=== PATIENT | female | born 1995 | race Caucasian/White ===

== ENCOUNTER 2017-11-11 02:16 | Emergency (ER) | payer MEDICAID ==
[~2017-11-11 02:16] MED LIST: BACDS PO; DOXY-8 PO; HYDR-2514 PO; HYDR-569 PO; NAPR-56 PO; ZOL50T PO
== END 2017-11-11 03:19 | disposition left against medical advice (07) ==
LOC: ER 02:18
DX: Z00.8 Encounter for other general examination (principal); Z53.21 Procedure and treatment not carried out due to patient leaving prior to being seen by health care provider
CPT/HCPCS: A6449

== ENCOUNTER 2017-11-11 05:25 | Emergency (ER) | payer MEDICAID ==
[~2017-11-11] VITALS: Ht 162.6 cm; Wt 55.5 kg
[2017-11-11 05:43] VITALS: BP 107/62
[2017-11-11] MEDS ORDERED: BUPIVAcaine/PF 2.5 mg/ml (0.25%) 30ml vial IJ ONE (06:30)
[2017-11-11] MEDS ORDERED: TETanus/Pertussis (Acell)/Diphther VAC/PF (Tdap-Adult) 0.5ml syringe IM ONE (06:30)
== END 2017-11-11 07:50 ==
LOC: ER 05:25
DX: Z02.89 Encounter for other administrative examinations (principal); S01.81XA Laceration without foreign body of other part of head, initial encounter; K04.1 Necrosis of pulp; F15.10 Other stimulant abuse, uncomplicated; F12.10 Cannabis abuse, uncomplicated; Z88.6 Allergy status to analgesic agent; V19.9XXA Pedal cyclist (driver) (passenger) injured in unspecified traffic accident, initial encounter; Y93.55 Activity, bike riding; Y92.413 State road as the place of occurrence of the external cause; Y99.9 Unspecified external cause status
CPT/HCPCS: 12011; 90471; 90715; 99283; A6449; J3490; J7030

== ENCOUNTER 2017-12-21 18:25 | Emergency (ER) | payer MEDICAID ==
[~2017-12-21] VITALS: Ht 162.6 cm; Wt 63.5 kg
[~2017-12-21 18:25] MED LIST changes: -NAPR-56 PO
[2017-12-21 18:53] VITALS: BP 132/83
== END 2017-12-21 18:54 | disposition home or self-care (01) ==
LOC: ER 18:27
DX: S01.81XD Laceration without foreign body of other part of head, subsequent encounter (principal); J45.909 Unspecified asthma, uncomplicated; Z88.8 Allergy status to other drugs, medicaments and biological substances; Z79.899 Other long term (current) drug therapy; W21.11 Struck by baseball bat
CPT/HCPCS: 99281

== ENCOUNTER 2018-04-30 03:35 | Emergency (ER) | payer MEDICAID ==
[~2018-04-30] VITALS: Ht 162.6 cm; Wt 62.0 kg
[2018-04-30 03:44] VITALS: BP 123/70
[2018-04-30] MEDS ORDERED: AMOX500C2 PO (04:11)
[2018-04-30] MEDS ORDERED: HYDR-569 PO (04:11)
== END 2018-04-30 05:02 | disposition home or self-care (01) ==
LOC: ER 03:36
DX: K04.7 Periapical abscess without sinus (principal); F17.200 Nicotine dependence, unspecified, uncomplicated; J45.909 Unspecified asthma, uncomplicated; Z79.899 Other long term (current) drug therapy; Z88.6 Allergy status to analgesic agent
CPT/HCPCS: 99283

== ENCOUNTER 2018-12-18 01:48 | Emergency (ER) | payer MEDICAID ==
[~2018-12-18] VITALS: Ht 162.6 cm; Wt 65.0 kg
[~2018-12-18 01:48] MED LIST changes: +HYDR-4383 PO; -HYDR-569 PO
[2018-12-18 03:33] LABS: URINE HCG NEGATIVE (NEG)
[2018-12-18 03:41] LABS: CLARITY,URINE CLEAR (Clear); COLOR,URINE YELLOW (Yellow); GLUCOSE, URINE NEGATIVE (Neg); KETONES,URINE NEGATIVE (Neg); LEUKOCYTE ESTERASE ,URINE TRACE (Neg); NITRITES, URINE NEGATIVE (Neg); OCCULT BLOOD,URINE MODERATE (Neg); PROTEIN,URINE NEGATIVE (Neg); UROBILINOGEN,URINE 0.2 E.U/dL (0.2-1.0)
[2018-12-18 03:42] LABS: UA COLLECTION TYPE CLN CATCH MIDSTREAM
[2018-12-18 03:52] LABS: MUCUS STRANDS MODERATE /LPF (Neg); SQUAMOUS EPITHELIAL CELL,UR MANY /LPF (FEW)
[2018-12-18 03:53] LABS: BACTERIA,URINE 1+ /HPF (Neg); TRICHOMONAS,URINE MOD /HPF (NEGATIVE)
[2018-12-18 03:54] LABS: RBC,URINE 0-2 /HPF (0-2)
[2018-12-18 04:40] VITALS: BP 109/66
== END 2018-12-18 08:53 | disposition left against medical advice (07) ==
LOC: ER 01:49
DX: N93.9 Abnormal uterine and vaginal bleeding, unspecified (principal); Z53.21 Procedure and treatment not carried out due to patient leaving prior to being seen by health care provider
CPT/HCPCS: 81001; 81025

== ENCOUNTER 2019-01-09 23:41 | Emergency (ER) | payer MEDICAID | END 2019-01-10 00:47 | disposition left against medical advice (07) | LOC: ER 23:42 | DX: K04.7 Periapical abscess without sinus (principal); Z53.21 Procedure and treatment not carried out due to patient leaving prior to being seen by health care provider ==

== ENCOUNTER 2019-05-26 18:11 | Emergency (ER) | payer MEDICAID ==
[~2019-05-26] VITALS: Ht 162.6 cm; Wt 59.0 kg
[2019-05-26 18:18] VITALS: BP 121/75
== END 2019-05-26 20:49 | disposition home or self-care (01) ==
LOC: ER 18:12
DX: S90.32XA Contusion of left foot, initial encounter (principal); J45.909 Unspecified asthma, uncomplicated; F32.9 Major depressive disorder, single episode, unspecified; Z88.6 Allergy status to analgesic agent; Z79.899 Other long term (current) drug therapy; X50.9XXA Other and unspecified overexertion or strenuous movements or postures, initial encounter; Y93.51 Activity, roller skating (inline) and skateboarding; Y92.89 Other specified places as the place of occurrence of the external cause; Y99.8 Other external cause status
CPT/HCPCS: 73630; 99283

== ENCOUNTER 2019-05-28 19:08 | Emergency (ER) | payer MEDICAID ==
[~2019-05-28] VITALS: Ht 162.6 cm; Wt 59.0 kg
[~2019-05-28 19:08] MED LIST changes: +SERT-153 PO; -ZOL50T PO
[2019-05-28 19:18] VITALS: BP 125/76
[2019-05-28 19:46] LABS: URINE HCG NEGATIVE (NEG)
[2019-05-28 19:50] LABS: CLARITY,URINE CLOUDY (Clear); COLOR,URINE YELLOW (Yellow); GLUCOSE, URINE NEGATIVE (Neg); KETONES,URINE 15 mg/dl (Neg); LEUKOCYTE ESTERASE ,URINE SMALL (Neg); NITRITES, URINE POSITIVE (Neg); OCCULT BLOOD,URINE LARGE (Neg); PROTEIN,URINE 100 mg/dl (Neg); UA COLLECTION TYPE CLN CATCH MIDSTREAM
[2019-05-28 20:03] LABS: BACTERIA,URINE 1+ /HPF (Neg); MUCUS STRANDS MODERATE /LPF (Neg); RBC,URINE NONE SEEN /HPF (0-2); SQUAMOUS EPITHELIAL CELL,UR MODERATE /LPF (FEW); WBC,URINE TNTC /HPF (0-4)
[2019-05-28 20:04] LABS: URIC ACID CRYSTALS 2+ /HPF (NEGATIVE)
[2019-05-28 21:49] LABS: BASOPHILS # (AUTO) 0.1 X10'3 (0-0.2); EOSINOPHILS # (AUTO) 0.1 X10'3 (0-0.9); EOSINOPHILS % (AUTO) 0.7 % (0-6); HEMATOCRIT 33.3 % (35.0-45.0); HEMOGLOBIN 11.1 g/dl (12.0-16.0); LYMPHOCYTES # (AUTO) 2.1 X10'3 (1.1-4.8); LYMPHOCYTES % (AUTO) 24.7 % (21-51); MEAN CORPUSCULAR HEMOGLOBIN 31.2 PG (27.0-31.0); MEAN CORPUSCULAR HGB CONC 33.4 g/dL (33.0-36.5); MEAN CORPUSCULAR VOLUME 93.3 FL (78-98); MEAN PLATELET VOLUME 7.3 FL (7.4-10.4); MONOCYTES # (AUTO) 0.5 X10'3 (0-0.9); MONOCYTES % (AUTO) 5.8 % (2-12); NEUTROPHILS # (AUTO) 5.8 X10'3 (1.8-7.7); NEUTROPHILS % (AUTO) 67.8 % (42-75); PLATELET COUNT 281 X10'3 (140-440); RED BLOOD COUNT 3.57 X10'6 (4.20-5.60); RED CELL DISTRIBUTION WIDTH 16.6 % (11.5-14.5); WHITE BLOOD COUNT 8.5 X10'3 (4.5-11.0)
[2019-05-28 22:03] LABS: ANION GAP 9 (8-16); BLOOD UREA NITROGEN 15 MG/DL (7-18); CHLORIDE 107 MMOL/L (99-107); CREATININE 0.77 MG/DL (0.40-0.90); GLUCOSE 84 MG/DL (70-104); POTASSIUM 3.4 MMOL/L (3.5-5.1); SODIUM 143 MMOL/L (135-145); TOTAL CARBON DIOXIDE 26.6 MMOL/L (24-32)
[2019-05-28 22:04] LABS: ALANINE AMINOTRANSFERASE 28 U/L (12-78); ALBUMIN 3.3 G/DL (3.4-5.0); ALBUMIN/GLOBULIN RATIO 0.8 (1.1-1.5); ALKALINE PHOSPHATASE 108 IU/L (46-116); ASPARTATE AMINO TRANSFERASE 26 U/L (10-37); BILIRUBIN,TOTAL 0.2 MG/DL (0.1-1.0); BUN/CREATININE RATIO 19.5 (6.6-38.0); CALCIUM 8.6 MG/DL (8.5-10.1); TOTAL PROTEIN 7.3 G/DL (6.4-8.2); eGFR > 90 ML/MIN
[2019-05-28] MEDS ORDERED: azithromycin 250mg tablet PO ONE (22:15)
[2019-05-28] MEDS ORDERED: CefTRIAXone 1000mg IM Kit (w/lidocaine diluent) IM ONE (22:15)
[2019-05-28] MEDS ORDERED: CEPH-572 PO (22:20)
== END 2019-05-28 23:16 | disposition home or self-care (01) ==
LOC: ER 19:08
DX: N92.1 Excessive and frequent menstruation with irregular cycle (principal); J45.909 Unspecified asthma, uncomplicated; F32.9 Major depressive disorder, single episode, unspecified; F15.90 Other stimulant use, unspecified, uncomplicated; F11.90 Opioid use, unspecified, uncomplicated; F10.99 Alcohol use, unspecified with unspecified alcohol-induced disorder; Z88.6 Allergy status to analgesic agent; Z79.899 Other long term (current) drug therapy; Y90.9 Presence of alcohol in blood, level not specified
CPT/HCPCS: 36415; 80053; 81001; 81025; 85025; 87077; 87088; 87186; 87210; 87491; 87591; 96372; 99283; J0696

== ENCOUNTER 2019-07-05 20:31 | Emergency (ER) | payer MEDICAID ==
[~2019-07-05] VITALS: Ht 162.6 cm; Wt 56.8 kg
[2019-07-05] MEDS ORDERED: clindamycin 150mg capsule PO ONE (21:45)
[2019-07-05] MEDS ORDERED: bacitracin 15gm ointment TP ONE (21:45)
[2019-07-05] MEDS ORDERED: CLIN150C8 PO (21:46)
[2019-07-05 22:11] VITALS: BP 115/81
== END 2019-07-05 22:04 | disposition home or self-care (01) ==
LOC: ER 20:32
DX: L02.01 Cutaneous abscess of face (principal); J45.909 Unspecified asthma, uncomplicated; F32.9 Major depressive disorder, single episode, unspecified; F15.90 Other stimulant use, unspecified, uncomplicated; F11.90 Opioid use, unspecified, uncomplicated; Z88.6 Allergy status to analgesic agent; Z79.899 Other long term (current) drug therapy
CPT/HCPCS: 99283

== ENCOUNTER 2019-07-16 23:26 | Emergency (ER) | payer MEDICAID ==
[~2019-07-16] VITALS: Ht 162.6 cm; Wt 58.0 kg
[~2019-07-16 23:26] MED LIST changes: +CLIN150C8 PO
[2019-07-16 23:33] VITALS: BP 135/89
--- NOTE | 2019-07-17 00:07 | NUR ---
PT STATES SHE DRINKS A HALF GALLON OF ALCOHOL PER DAY
[2019-07-17] MEDS ORDERED: LIDOcaine 1% w/EPI 1:200,000 injection 10mL vial IM ONE (00:25)
[2019-07-17] MEDS ORDERED: LIDOcaine 1% W/epiNEPHrine 1:100,000 20ml vial SQ ONE (00:30)
== END 2019-07-17 01:10 | disposition home or self-care (01) ==
LOC: ER 23:26
DX: S00.451A Superficial foreign body of right ear, initial encounter (principal); J45.909 Unspecified asthma, uncomplicated; F32.9 Major depressive disorder, single episode, unspecified; F15.90 Other stimulant use, unspecified, uncomplicated; F11.90 Opioid use, unspecified, uncomplicated; F10.99 Alcohol use, unspecified with unspecified alcohol-induced disorder; Z88.6 Allergy status to analgesic agent; Z79.899 Other long term (current) drug therapy; W49.09XA Other specified item causing external constriction, initial encounter; Y93.89 Activity, other specified; Y92.89 Other specified places as the place of occurrence of the external cause; Y99.8 Other external cause status; Y90.9 Presence of alcohol in blood, level not specified
CPT/HCPCS: 10120; 69200; 99284

== ENCOUNTER 2019-07-29 13:32 | Emergency (ER) | payer MEDICAID ==
[~2019-07-29] VITALS: Ht 162.6 cm; Wt 56.4 kg
[2019-07-29 13:40] VITALS: BP 131/90
[2019-07-29] MEDS ORDERED: ERYT1OIN6 RIGHTEYE (16:02)
== END 2019-07-29 16:22 | disposition home or self-care (01) ==
LOC: ER 13:32
DX: H00.012 Hordeolum externum right lower eyelid (principal); J45.909 Unspecified asthma, uncomplicated; F32.9 Major depressive disorder, single episode, unspecified; F14.90 Cocaine use, unspecified, uncomplicated; F15.90 Other stimulant use, unspecified, uncomplicated; Z88.6 Allergy status to analgesic agent
CPT/HCPCS: 99283

== ENCOUNTER 2019-08-27 23:49 | Emergency (ER) | payer MEDICAID ==
[~2019-08-27] VITALS: Ht 162.6 cm; Wt 56.8 kg
[~2019-08-27 23:49] MED LIST changes: +ERYT1OIN6 RIGHTEYE
[2019-08-27 23:52] VITALS: BP 101/74
[2019-08-28] MEDS ORDERED: ONDA4TAB12 PO (00:51)
[2019-08-28] MEDS ORDERED: GABA-532 PO (00:51)
[2019-08-28] MEDS ORDERED: NICO-731 TOP (00:59)
--- NOTE | 2019-08-28 01:15 | NUR ---
RN OF SECTION UNABLE TO PERFORM NURSING CHARTING BEFORE WAS DC'D BY . NO NURSING INTERVENTIONS WERE REQUIRED.
== END 2019-08-28 01:02 | disposition home or self-care (01) ==
LOC: ER 23:49
DX: Z02.89 Encounter for other administrative examinations (principal); J45.909 Unspecified asthma, uncomplicated; F32.9 Major depressive disorder, single episode, unspecified; F17.210 Nicotine dependence, cigarettes, uncomplicated; F15.90 Other stimulant use, unspecified, uncomplicated; F11.90 Opioid use, unspecified, uncomplicated; Z88.6 Allergy status to analgesic agent; Z79.899 Other long term (current) drug therapy
CPT/HCPCS: 99283

== ENCOUNTER 2019-10-21 23:41 | Emergency (ER) | payer MEDICAID ==
[~2019-10-21] VITALS: Ht 162.6 cm; Wt 56.8 kg
[~2019-10-21 23:41] MED LIST changes: -ERYT1OIN6 RIGHTEYE; +GABA-532 PO; +NICO-731 TOP; +ONDA4TAB12 PO
[2019-10-22] MEDS ORDERED: GABA-532 PO (00:05)
[2019-10-22] MEDS ORDERED: gabapentin 400mg capsule PO STA (00:07)
[2019-10-22 00:32] VITALS: BP 148/87
== END 2019-10-22 00:32 | disposition home or self-care (01) ==
LOC: ER 23:41
DX: F10.20 Alcohol dependence, uncomplicated (principal); F15.90 Other stimulant use, unspecified, uncomplicated; F11.90 Opioid use, unspecified, uncomplicated; J45.909 Unspecified asthma, uncomplicated; Z88.6 Allergy status to analgesic agent; Z79.899 Other long term (current) drug therapy; Y90.9 Presence of alcohol in blood, level not specified
CPT/HCPCS: 99283

== ENCOUNTER 2020-01-25 05:48 | Emergency (ER) | payer MEDICAID ==
[~2020-01-25] VITALS: Ht 162.6 cm; Wt 60.5 kg
[2020-01-25 05:51] VITALS: BP 128/88
[2020-01-25] MEDS ORDERED: sulfamethoxazole/trimethoprim DS (800/160mg) tablet PO ONE (06:55)
[2020-01-25] MEDS ORDERED: SULF1TAB49 PO (06:56)
[2020-01-25] MEDS ORDERED: HYDR28.472 TOP (06:56)
== END 2020-01-25 07:06 | disposition home or self-care (01) ==
LOC: ER 05:48
DX: S70.361A Insect bite (nonvenomous), right thigh, initial encounter (principal); L03.115 Cellulitis of right lower limb; F41.9 Anxiety disorder, unspecified; F32.9 Major depressive disorder, single episode, unspecified; F17.200 Nicotine dependence, unspecified, uncomplicated; F15.90 Other stimulant use, unspecified, uncomplicated; F11.90 Opioid use, unspecified, uncomplicated; F10.10 Alcohol abuse, uncomplicated; Z88.8 Allergy status to other drugs, medicaments and biological substances; Z79.899 Other long term (current) drug therapy; W57.XXXA Bitten or stung by nonvenomous insect and other nonvenomous arthropods, initial encounter; Y93.89 Activity, other specified; Y92.89 Other specified places as the place of occurrence of the external cause; Y99.8 Other external cause status
CPT/HCPCS: 99283

== ENCOUNTER 2020-04-26 18:12 | Emergency (ER) | payer MEDICAID ==
[~2020-04-26] VITALS: Ht 162.6 cm; Wt 60.0 kg
[~2020-04-26 18:12] MED LIST changes: +HYDR28.472 TOP
[2020-04-26 18:25] VITALS: BP 148/80
[2020-04-26] MEDS ORDERED: ERYT1OIN6 RIGHTEYE (19:11)
== END 2020-04-26 19:23 | disposition home or self-care (01) ==
LOC: ER 18:12
DX: H10.9 Unspecified conjunctivitis (principal); J45.909 Unspecified asthma, uncomplicated; F32.9 Major depressive disorder, single episode, unspecified; F10.10 Alcohol abuse, uncomplicated; F15.90 Other stimulant use, unspecified, uncomplicated; F11.90 Opioid use, unspecified, uncomplicated; Z79.899 Other long term (current) drug therapy; Z88.6 Allergy status to analgesic agent; Z88.1 Allergy status to other antibiotic agents; Z88.5 Allergy status to narcotic agent
CPT/HCPCS: 99283

== ENCOUNTER 2020-05-17 19:01 | Emergency (ER) | payer MEDICAID ==
[~2020-05-17] VITALS: Ht 162.6 cm; Wt 60.0 kg
[~2020-05-17 19:01] MED LIST changes: +ERYT1OIN6 RIGHTEYE
[2020-05-17 19:03] VITALS: BP 101/70
[2020-05-17] MEDS ORDERED: PENI250T2 PO (19:08)
[2020-05-17] MEDS ORDERED: LORA-269 PO (19:08)
[2020-05-17] MEDS ORDERED: GABA300C PO (19:08)
== END 2020-05-17 19:11 | disposition home or self-care (01) ==
LOC: ER 19:01
DX: F10.10 Alcohol abuse, uncomplicated (principal); F15.10 Other stimulant abuse, uncomplicated; K08.89 Other specified disorders of teeth and supporting structures; J45.909 Unspecified asthma, uncomplicated; F32.9 Major depressive disorder, single episode, unspecified; F11.90 Opioid use, unspecified, uncomplicated; Z88.6 Allergy status to analgesic agent; Z79.2 Long term (current) use of antibiotics; Z79.899 Other long term (current) drug therapy; Y90.9 Presence of alcohol in blood, level not specified
CPT/HCPCS: 99283

== ENCOUNTER 2020-10-06 18:11 | Emergency (ER) | payer MEDICAID ==
[~2020-10-06] VITALS: Ht 162.6 cm; Wt 59.6 kg
[~2020-10-06 18:11] MED LIST changes: -ERYT1OIN6 RIGHTEYE; +GABA300C PO; +LORA-269 PO
[2020-10-06 18:28] VITALS: BP 138/89
[2020-10-06] MEDS ORDERED: mupirocin 2% ointment 22GM TP STA (18:48)
[2020-10-06] MEDS ORDERED: SULF1TAB49 PO (18:54)
== END 2020-10-06 19:26 | disposition home or self-care (01) ==
LOC: ER 18:11
DX: S80.261A Insect bite (nonvenomous), right knee, initial encounter (principal); J45.909 Unspecified asthma, uncomplicated; F32.9 Major depressive disorder, single episode, unspecified; F15.90 Other stimulant use, unspecified, uncomplicated; F11.90 Opioid use, unspecified, uncomplicated; Z72.89 Other problems related to lifestyle; Z88.6 Allergy status to analgesic agent; Z79.2 Long term (current) use of antibiotics; Z79.899 Other long term (current) drug therapy; W57.XXXA Bitten or stung by nonvenomous insect and other nonvenomous arthropods, initial encounter; Y93.89 Activity, other specified; Y92.89 Other specified places as the place of occurrence of the external cause; Y99.8 Other external cause status
CPT/HCPCS: 99283

== ENCOUNTER 2020-11-25 04:36 | Emergency (ER) | payer MEDICAID ==
[~2020-11-25] VITALS: Ht 162.6 cm; Wt 59.1 kg
--- NOTE | 2020-11-25 04:48 | NUR ---
etogh DAILY LAST DRIN K JUST BEFORE SHE ARRIVED. CW PAIN REPRODUCED WITH PRESSURE AND LETS UP WHEN PRESSURE RELEASED.
--- NOTE | 2020-11-25 04:49 | NUR ---
DR COLIN IN ROOM REASSURED PATIENT THIS IS UNLIKELY A HEART ATTACK. PATEINT REPORTS MOTHER RECENTLY AND UNABLE TO HET INTO REHAB MAKING HER ANXIOUS. PLAN TO TREAT PAIN ORDERS PENDING FROM DR COLIN
[2020-11-25] MEDS ORDERED: acetaminophen 325mg tablet PO ONE (04:50)
[2020-11-25 04:57] VITALS: BP 134/88
== END 2020-11-25 04:58 | disposition home or self-care (01) ==
LOC: ER 04:37
DX: R07.89 Other chest pain (principal); R20.0 Anesthesia of skin; J45.909 Unspecified asthma, uncomplicated; F32.9 Major depressive disorder, single episode, unspecified; F17.200 Nicotine dependence, unspecified, uncomplicated; F15.90 Other stimulant use, unspecified, uncomplicated; F11.90 Opioid use, unspecified, uncomplicated; Z72.89 Other problems related to lifestyle; Z88.6 Allergy status to analgesic agent; Z79.2 Long term (current) use of antibiotics; Z79.899 Other long term (current) drug therapy
CPT/HCPCS: 93005; 99283

== ENCOUNTER 2020-12-19 23:06 | Emergency (ER) | payer MEDICAID ==
[~2020-12-19] VITALS: Ht 162.6 cm; Wt 59.6 kg
[2020-12-19 23:14] VITALS: BP 117/84
== END 2020-12-19 23:40 | disposition home or self-care (01) ==
LOC: ER 23:06
DX: J02.9 Acute pharyngitis, unspecified (principal); R09.89 Other specified symptoms and signs involving the circulatory and respiratory systems; R51.9 Headache, unspecified; J45.909 Unspecified asthma, uncomplicated; F32.9 Major depressive disorder, single episode, unspecified; F15.90 Other stimulant use, unspecified, uncomplicated; F11.90 Opioid use, unspecified, uncomplicated; Z72.89 Other problems related to lifestyle; Z88.6 Allergy status to analgesic agent; Z79.2 Long term (current) use of antibiotics; Z79.899 Other long term (current) drug therapy
CPT/HCPCS: 99281

== ENCOUNTER 2021-01-07 21:13 | Emergency (ER) | payer MEDICAID ==
[~2021-01-07] VITALS: Ht 162.6 cm; Wt 57.7 kg
[2021-01-07] MEDS ORDERED: POLOS EACHEYE (23:31)
== END 2021-01-07 23:42 | disposition home or self-care (01) ==
LOC: ER 21:14
DX: H00.015 Hordeolum externum left lower eyelid (principal); J45.909 Unspecified asthma, uncomplicated; F32.9 Major depressive disorder, single episode, unspecified; F15.90 Other stimulant use, unspecified, uncomplicated; F11.90 Opioid use, unspecified, uncomplicated; Z88.6 Allergy status to analgesic agent; Z88.1 Allergy status to other antibiotic agents; Z79.899 Other long term (current) drug therapy
CPT/HCPCS: 99283

== ENCOUNTER 2021-01-27 19:12 | Emergency (ER) | payer MEDICAID ==
[~2021-01-27] VITALS: Ht 162.6 cm; Wt 63.6 kg
[2021-01-27] MEDS ORDERED: ondansetron 4mg rapidly disintigrating tab PO ONE (19:50)
[2021-01-27 19:57] LABS: BASOPHILS % (AUTO) 0.5 % (0-1); EOSINOPHILS # (AUTO) 0.1 X10'3 (0-0.9); EOSINOPHILS % (AUTO) 1.9 % (0-6); HEMATOCRIT 39.8 % (35.0-45.0); HEMOGLOBIN 13.2 g/dl (12.0-16.0); LYMPHOCYTES # (AUTO) 2.4 X10'3 (1.1-4.8); LYMPHOCYTES % (AUTO) 35.1 % (21-51); MEAN CORPUSCULAR HEMOGLOBIN 32.6 PG (27.0-31.0); MEAN CORPUSCULAR HGB CONC 33.1 g/dL (33.0-36.5); MEAN CORPUSCULAR VOLUME 98.7 FL (78-98); MONOCYTES # (AUTO) 0.6 X10'3 (0-0.9); NEUTROPHILS # (AUTO) 3.8 X10'3 (1.8-7.7); NEUTROPHILS % (AUTO) 54.5 % (42-75); PLATELET COUNT 346 X10'3 (140-440); RED BLOOD COUNT 4.03 X10'6 (4.20-5.60); RED CELL DISTRIBUTION WIDTH 13.3 % (11.5-14.5); WHITE BLOOD COUNT 6.9 X10'3 (4.5-11.0)
[2021-01-27] MEDS ORDERED: LORazepam 2 mg/ml vial IV ONE (20:10)
[2021-01-27] MEDS ORDERED: normal saline 1000ml 1,000 ML IV ONE (20:10)
[2021-01-27 20:11] LABS: ALANINE AMINOTRANSFERASE 24 U/L (12-78); ALBUMIN 3.2 G/DL (3.4-5.0); ALBUMIN/GLOBULIN RATIO 0.9 (1.1-1.5); ALKALINE PHOSPHATASE 103 IU/L (46-116); ANION GAP 9 (8-16); ASPARTATE AMINO TRANSFERASE 28 U/L (10-37); BILIRUBIN,TOTAL 0.5 MG/DL (0.1-1.0); BLOOD UREA NITROGEN 15 MG/DL (7-18); CALCIUM 8.3 MG/DL (8.5-10.1); CHLORIDE 107 MMOL/L (99-107); CREATININE 0.75 MG/DL (0.40-0.90); GLUCOSE 96 MG/DL (70-104); LIPASE 78 U/L (73-393); POTASSIUM 3.7 MMOL/L (3.5-5.1); SODIUM 143 MMOL/L (135-145); TOTAL CARBON DIOXIDE 27.3 MMOL/L (24-32); TOTAL PROTEIN 6.8 G/DL (6.4-8.2); eGFR > 90 ML/MIN
[2021-01-27] MEDS ORDERED: pantoprazole 40 MG vial IV ONE (20:20)
[2021-01-27] MEDS ORDERED: ONDA4TAB6 PO (20:47)
[2021-01-27] MEDS ORDERED: PANT20TA18 PO (20:47)
--- NOTE | 2021-01-27 21:07 | NUR ---
PT UP TO THE BATHROOM. PT IS UNABLE TO URINATE AT THIST TIME.
[2021-01-27 21:26] VITALS: BP 120/74
[2021-01-28] MEDS ORDERED: pantoprazole 40mg Tablet.DR PO SCH (07:30)
== END 2021-01-27 21:28 | disposition home or self-care (01) ==
LOC: ER 19:13
DX: K29.20 Alcoholic gastritis without bleeding (principal); F10.10 Alcohol abuse, uncomplicated; J45.909 Unspecified asthma, uncomplicated; F32.9 Major depressive disorder, single episode, unspecified; F15.90 Other stimulant use, unspecified, uncomplicated; F11.90 Opioid use, unspecified, uncomplicated; Z88.6 Allergy status to analgesic agent; Z79.899 Other long term (current) drug therapy; Y90.0 Blood alcohol level of less than 20 mg/100 ml
CPT/HCPCS: 36415; 80053; 83690; 85025; 96361; 96374; 96375; 99284; C9113; J2060; J7030

== ENCOUNTER 2021-02-04 14:19 | Emergency (ER) | payer MEDICAID ==
[~2021-02-04] VITALS: Ht 162.6 cm; Wt 62.3 kg
[~2021-02-04 14:19] MED LIST changes: +ONDA4TAB6 PO; +PANT20TA18 PO
[2021-02-04 15:57] VITALS: BP 140/89
== END 2021-02-04 16:00 | disposition home or self-care (01) ==
LOC: ER 14:20
DX: M79.671 Pain in right foot (principal); R22.41 Localized swelling, mass and lump, right lower limb; J45.909 Unspecified asthma, uncomplicated; F15.90 Other stimulant use, unspecified, uncomplicated; F11.90 Opioid use, unspecified, uncomplicated; Z88.8 Allergy status to other drugs, medicaments and biological substances; Z79.2 Long term (current) use of antibiotics; Z79.899 Other long term (current) drug therapy
CPT/HCPCS: 73630; 99283

== ENCOUNTER 2021-03-06 19:08 | Emergency (ER) | payer MEDICAID ==
[~2021-03-06] VITALS: Ht 162.6 cm; Wt 59.1 kg
[2021-03-06 19:13] VITALS: BP 120/79
--- NOTE | 2021-03-06 20:31 | NUR ---
Called for pt in [facility] on 3 separate occasions with no answer. Chart given to charge nurse for further action.
== END 2021-03-06 20:36 | disposition left against medical advice (07) ==
LOC: ER 19:09
DX: Z53.21 Procedure and treatment not carried out due to patient leaving prior to being seen by health care provider (principal)

== ENCOUNTER 2021-06-08 09:21 | Emergency (ER) | payer MEDICAID ==
[~2021-06-08] VITALS: Ht 162.6 cm; Wt 59.6 kg
[2021-06-08 09:35] VITALS: BP 123/88
== END 2021-06-08 10:06 | disposition home or self-care (01) ==
LOC: ER 09:21
DX: F15.10 Other stimulant abuse, uncomplicated (principal); J45.909 Unspecified asthma, uncomplicated; F32.9 Major depressive disorder, single episode, unspecified; F11.90 Opioid use, unspecified, uncomplicated; Z72.89 Other problems related to lifestyle; Z88.6 Allergy status to analgesic agent; Z88.1 Allergy status to other antibiotic agents; Z79.899 Other long term (current) drug therapy; Z79.2 Long term (current) use of antibiotics
CPT/HCPCS: 99281

== ENCOUNTER 2021-07-07 23:58 | Emergency (ER) | payer MEDICAID ==
[~2021-07-07] VITALS: Ht 162.6 cm; Wt 130.0 kg
[2021-07-08 00:28] VITALS: BP 118/80
== END 2021-07-08 | disposition left against medical advice (07) ==
LOC: ER 07-08 06:12
DX: L08.9 Local infection of the skin and subcutaneous tissue, unspecified (principal); Z53.21 Procedure and treatment not carried out due to patient leaving prior to being seen by health care provider

== ENCOUNTER 2021-08-05 15:21 | Emergency (ER) | payer MEDICAID ==
[~2021-08-05] VITALS: Ht 162.6 cm; Wt 59.1 kg
[2021-08-05 15:38] VITALS: BP 117/78
[2021-08-05] MEDS ORDERED: ondansetron 4mg rapidly disintigrating tab PO ONE (16:05)
[2021-08-05] MEDS ORDERED: acetaminophen 325mg tablet PO ONE (16:05)
[2021-08-05 16:36] LABS: D-DIMER < 0.19 MG/L FEU (0-0.50)
[2021-08-05] MEDS ORDERED: ONDA4TAB6 PO (16:58)
[2021-08-05] MEDS ORDERED: AZIT-63 PO (16:58)
== END 2021-08-05 17:05 | disposition home or self-care (01) ==
LOC: ER 15:22
DX: J06.9 Acute upper respiratory infection, unspecified (principal); Z20.822 Contact with and (suspected) exposure to COVID-19; F15.10 Other stimulant abuse, uncomplicated; F11.10 Opioid abuse, uncomplicated; Z88.6 Allergy status to analgesic agent; Z88.1 Allergy status to other antibiotic agents; Z79.899 Other long term (current) drug therapy
CPT/HCPCS: 36415; 85379; 87635; 99283; C9803

== ENCOUNTER 2021-09-10 21:06 | Emergency (ER) | payer MEDICAID ==
[~2021-09-10] VITALS: Ht 162.6 cm; Wt 63.6 kg
[2021-09-10 21:24] VITALS: BP 125/86
[2021-09-10] MEDS ORDERED: ALBU8HFA PO (22:14)
== END 2021-09-10 22:24 | disposition home or self-care (01) ==
LOC: ER 21:07
DX: O98.512 Other viral diseases complicating pregnancy, second trimester (principal); U07.1 COVID-19; J45.909 Unspecified asthma, uncomplicated; F32.9 Major depressive disorder, single episode, unspecified; F15.10 Other stimulant abuse, uncomplicated; F11.10 Opioid abuse, uncomplicated; Z88.6 Allergy status to analgesic agent; Z79.899 Other long term (current) drug therapy; Z3A.13 13 weeks gestation of pregnancy
CPT/HCPCS: 87635; 99283; C9803

== ENCOUNTER 2021-09-17 18:02 | Emergency (ER) | payer MEDICAID ==
[~2021-09-17] VITALS: Ht 162.6 cm; Wt 63.6 kg
[~2021-09-17 18:02] MED LIST changes: +ALBU8HFA PO
[2021-09-17 18:29] VITALS: BP 118/71
[2021-09-17] MEDS ORDERED: CLIN-97 PO (18:56)
[2021-09-17 19:32] LABS: EOSINOPHILS # (AUTO) 0.1 X10'3 (0-0.9)
[2021-09-17 19:34] LABS: BASOPHILS % (AUTO) 0.4 % (0-1); EOSINOPHILS % (AUTO) 0.9 % (0-6); HEMATOCRIT 37.5 % (35.0-45.0); LYMPHOCYTES % (AUTO) 24.5 % (21-51); MEAN CORPUSCULAR HEMOGLOBIN 33.8 PG (27.0-31.0); MEAN CORPUSCULAR HGB CONC 34.8 g/dL (33.0-36.5); MEAN CORPUSCULAR VOLUME 97.3 FL (78-98); MEAN PLATELET VOLUME 7.7 FL (7.4-10.4); MONOCYTES # (AUTO) 0.6 X10'3 (0-0.9); MONOCYTES % (AUTO) 7.4 % (2-12); NEUTROPHILS # (AUTO) 5.4 X10'3 (1.8-7.7); NEUTROPHILS % (AUTO) 66.8 % (42-75); PLATELET COUNT 309 X10'3 (140-440); RED BLOOD COUNT 3.86 X10'6 (4.20-5.60); RED CELL DISTRIBUTION WIDTH 13.1 % (11.5-14.5); WHITE BLOOD COUNT 8.2 X10'3 (4.5-11.0)
[2021-09-17 19:40] LABS: ALANINE AMINOTRANSFERASE 29 U/L (12-78); ALBUMIN 3.8 G/DL (3.4-5.0); ALKALINE PHOSPHATASE 91 IU/L (46-116); ANION GAP 11 (8-16); ASPARTATE AMINO TRANSFERASE 17 U/L (10-37); BILIRUBIN,TOTAL 0.3 MG/DL (0.1-1.0); BLOOD UREA NITROGEN 15 MG/DL (7-18); BUN/CREATININE RATIO 21.1 (6.6-38.0); CALCIUM 8.9 MG/DL (8.5-10.1); CHLORIDE 106 MMOL/L (99-107); CREATININE 0.71 MG/DL (0.40-0.90); GLUCOSE 117 MG/DL (70-104); POTASSIUM 3.6 MMOL/L (3.5-5.1); SODIUM 143 MMOL/L (135-145); TOTAL CARBON DIOXIDE 26.5 MMOL/L (24-32); TOTAL PROTEIN 7.7 G/DL (6.4-8.2); eGFR > 90 ML/MIN
== END 2021-09-17 20:02 | disposition home or self-care (01) ==
LOC: ER 18:03
DX: O98.511 Other viral diseases complicating pregnancy, first trimester (principal); O26.891 Other specified pregnancy related conditions, first trimester; L03.113 Cellulitis of right upper limb; J45.909 Unspecified asthma, uncomplicated; F32.9 Major depressive disorder, single episode, unspecified; F15.10 Other stimulant abuse, uncomplicated; Z88.6 Allergy status to analgesic agent; Z79.899 Other long term (current) drug therapy; Z3A.13 13 weeks gestation of pregnancy
CPT/HCPCS: 36415; 80053; 83605; 84145; 85025; 87040; 99283

== ENCOUNTER 2022-02-06 08:01 | Emergency (ER) | payer MEDICAID ==
[~2022-02-06] VITALS: Ht 162.6 cm; Wt 73.2 kg
[~2022-02-06 08:01] MED LIST changes: -ALBU8HFA PO; +CLIN-97 PO
[2022-02-06] MEDS ORDERED: PENI250T2 PO (09:25)
[2022-02-06 09:32] VITALS: BP 102/62
== END 2022-02-06 09:34 | disposition home or self-care (01) ==
LOC: ER 08:02
DX: O99.612 Diseases of the digestive system complicating pregnancy, second trimester (principal); K04.7 Periapical abscess without sinus; O99.512 Diseases of the respiratory system complicating pregnancy, second trimester; J45.909 Unspecified asthma, uncomplicated; Z3A.27 27 weeks gestation of pregnancy; Z72.89 Other problems related to lifestyle; Z88.8 Allergy status to other drugs, medicaments and biological substances; Z79.2 Long term (current) use of antibiotics; Z79.899 Other long term (current) drug therapy
CPT/HCPCS: 99283

== ENCOUNTER 2022-04-08 17:52 | Emergency (ER) | payer MEDICAID ==
[~2022-04-08] VITALS: Ht 162.6 cm; Wt 77.3 kg
[2022-04-08 17:55] VITALS: BP 103/57
[2022-04-08] MEDS ORDERED: AMOX-100 PO (18:10)
== END 2022-04-08 18:21 | disposition home or self-care (01) ==
LOC: ER 17:53
DX: K02.9 Dental caries, unspecified (principal); J45.909 Unspecified asthma, uncomplicated; F32.A Depression, unspecified; Z88.6 Allergy status to analgesic agent; Z79.899 Other long term (current) drug therapy
CPT/HCPCS: 99283

== ENCOUNTER 2022-07-23 15:05 | Emergency (ER) | payer MEDICAID | END 2022-07-23 16:16 | disposition left against medical advice (07) | LOC: ER 15:06 | DX: Z00.8 Encounter for other general examination (principal); Z53.21 Procedure and treatment not carried out due to patient leaving prior to being seen by health care provider ==

== ENCOUNTER 2023-08-11 07:50 | Emergency (ER) | payer MEDICAID ==
[~2023-08-11] VITALS: Ht 162.6 cm; Wt 61.4 kg
[~2023-08-11 07:50] MED LIST changes: +CLIN-214 PO; -CLIN150C8 PO
[2023-08-11 08:06] VITALS: TEMP 97.9
[2023-08-11] MEDS ORDERED: normal saline 1000ML IV soln IVB ONE (08:10)
[2023-08-11 08:15] LABS: BASOPHILS # (AUTO) 0.1 X10'3 (0-0.2); BASOPHILS % (AUTO) 1.4 % (0-1); EOSINOPHILS # (AUTO) 0.2 X10'3 (0-0.9); EOSINOPHILS % (AUTO) 2.4 % (0-6); HEMATOCRIT 36.9 % (35.0-45.0); HEMOGLOBIN 12.5 g/dl (12.0-16.0); LYMPHOCYTES # (AUTO) 3.1 X10'3 (1.1-4.8); LYMPHOCYTES % (AUTO) 48.5 % (21-51); MEAN CORPUSCULAR HGB CONC 33.9 g/dL (33.0-36.5); MEAN CORPUSCULAR VOLUME 94.6 FL (78-98); MEAN PLATELET VOLUME 7.2 FL (7.4-10.4); MONOCYTES # (AUTO) 0.4 X10'3 (0-0.9); MONOCYTES % (AUTO) 6.8 % (2-12); NEUTROPHILS # (AUTO) 2.7 X10'3 (1.8-7.7); NEUTROPHILS % (AUTO) 40.9 % (42-75); PLATELET COUNT 273 X10'3 (140-440); RED CELL DISTRIBUTION WIDTH 12.8 % (11.5-14.5); WHITE BLOOD COUNT 6.5 X10'3 (4.5-11.0)
[2023-08-11 08:36] LABS: ALANINE AMINOTRANSFERASE 17 U/L (12-78); ALBUMIN 3.5 G/DL (3.4-5.0); ALBUMIN/GLOBULIN RATIO 1.2 (1.1-1.5); ALKALINE PHOSPHATASE 55 IU/L (46-116); ANION GAP 10 (8-16); ASPARTATE AMINO TRANSFERASE 17 U/L (10-37); BILIRUBIN,TOTAL 0.3 MG/DL (0.1-1.0); BLOOD UREA NITROGEN 13 MG/DL (7-18); BUN/CREATININE RATIO 17.3 (10.0-20.0); CALCIUM 8.3 MG/DL (8.5-10.1); CHLORIDE 108 MMOL/L (99-107); CREATININE 0.75 MG/DL (0.40-0.90); GLUCOSE 122 MG/DL (70-104); POTASSIUM 3.3 MMOL/L (3.5-5.1); SODIUM 140 MMOL/L (135-145); TOTAL CARBON DIOXIDE 22.3 MMOL/L (24-32); TOTAL PROTEIN 6.5 G/DL (6.4-8.2); eCRCL 96 ML/MIN; eGFR > 90 ML/MIN
[2023-08-11 08:44] LABS: PRO BRAIN NATRIURETIC PEPTIDE 99 PG/ML (0-125)
[2023-08-11] MEDS ORDERED: acetaminophen 325mg tablet PO ONE (09:10)
[2023-08-11] MEDS ORDERED: potassium Cl 20 mEq SR tablet PO STA (10:16)
[2023-08-11 10:46] LABS: URINE HCG NEGATIVE (NEG)
[2023-08-11 11:02] LABS: CLARITY,URINE CLOUDY (Clear); COLOR,URINE RED (Yellow); UA COLLECTION TYPE CLN CATCH MIDSTREAM
[2023-08-11 11:03] LABS: BACTERIA,URINE FEW /HPF (Neg); RBC,URINE TNTC /HPF (0-2); SQUAMOUS EPITHELIAL CELL,UR FEW /LPF (FEW)
[2023-08-11 11:04] LABS: TRANSITIONAL EPI CELLS,URINE FEW /HPF
[2023-08-11 11:49] VITALS: BP 110/66; PULSE 75; RESP 16; O2SAT 99
--- NOTE | 2023-08-11 11:51 | NUR ---
NO INTERACTION WITH PT OTHER THAN TO TAKE PT CHART OFF THE BOARD. MICHAEL DIETZ WAS THE NURSE,
== END 2023-08-11 12:05 | disposition home or self-care (01) ==
LOC: ER 07:50
DX: E87.6 Hypokalemia (principal); R55 Syncope and collapse; J45.909 Unspecified asthma, uncomplicated; F32.A Depression, unspecified; Z88.6 Allergy status to analgesic agent; Z79.899 Other long term (current) drug therapy
CPT/HCPCS: 36415; 80053; 81001; 81025; 82948; 83880; 84484; 85025; 87088; 93005; 96360; 99284; J7030